=== PATIENT | female | born 2000 | race Two or more races ===

== ENCOUNTER 2025-03-28 16:58 | Emergency (ER) | payer MEDICAID, SELFPAY ==
[2025-03-28 17:09] VITALS: BP 139/86; PULSE 84; RESP 16; TEMP 36.8; O2SAT 98
--- NOTE | 2025-03-28 17:15 | EDRME_ITS ---
Rapid Medical Screening Exam E Arrival date/time: 03/28/25 16:58 This is a 24-year-old female that comes into the emergency room with complaints of dysuria, oliguria urinary frequency urgency. Patient states symptoms started yesterday. Patient does not think she is . Patient complains of nausea and fever. Patient denies past medical history. I have greeted and performed a focused initial assessment of this patient. Initial appropriate labs ordered at this time. A comprehensive ED assessment a nd evaluation of the patient and analysis of all test and completion of medical decision making process will be conducted by additional ED provider. Chief Complaint: General Adult/Misc Complain Time Seen by Provider: 03/28/25 17:01 Vital signs: Vital Signs Temperature 98.3 F 03/28/25 17:09 Pulse Rate 84 03/28/25 17:09 Respiratory Rate 16 03/28/25 17:09 Blood Pressure 139/86 H 03/28/25 17:09 Pulse Oximetry (%) 98 03/28/25 17:09 Oxygen Delivery Method Room Air 03/28/25 17:09 Exam: Patient alert and oriented, breathing even and unlabored, GCS of 15 Clinical Impression: Differential UTI, , dysuria
[2025-03-28 17:25] LABS: Collection Type, Urine Voided
[2025-03-28 17:35] LABS: Amorphous Crystals,Urine Present (Absent); Bilirubin,Urine Negative (Negative); Blood,Urine 2+ (Negative); Color,Urine Yellow (Lt Yel-Yel); Glucose, Urine Negative (Negative); HCG Qualitative,Urine Negative; Ketones,Urine Negative (Negative); Leukocyte Esterase,Urine Positive (Negative); Nitrite,Urine Negative (Negative); PH,Urine 7.0 (5.0-7.0); Protein,Urine 1+ (Neg - Trace); RBC,Urine 179 /hpf (0-3); Specific Gravity,Urine 1.026 (1.001-1.035); Squamous Epithelial Cell,Urine 9 /hpf (0-5); Transitional Epi Cells,Urine 5 /hpf (0-5); Urobilinogen,Urine Negative mg/dL (0.0-1.0); WBC,Urine 240 /hpf (0-5)
[2025-03-28 17:36] LABS: Clarity,Urine Turbid (Clear/Hazy); Culture Indicated,Urine Yes
[2025-03-28 20:04] VITALS: BP 112/71; PULSE 67; RESP 16; TEMP 37.1; O2SAT 98
--- NOTE | 2025-03-28 20:20 | EDNOTE_ITS ---
ED General RME/HPI General Chief complaint: General Adult/Misc Complain Stated complaint: PAIN W/ URINATION X 1 DAY Time Seen by Provider: 03/28/25 17:01 Arrival date/time: 03/28/25 16:58 CC: Dysuria HPI ongoing for 1 day no prior history of similar events. Is sexually active denies any as she has an implant. Patient denies fever chills nausea vomiting back pain or abdominal pain. RME / HPI RME / HPI narrative: 03/28/25 16:58 This is a 24-year-old female that comes into the emergency room with complaints of dysuria, oliguria urinary frequency urgency. Patient states symptoms started yesterday. Patient does not think she is . Patient complains of nausea and fever. Patient denies past medical history. I have greeted and performed a focused initial assessment of this patient. Initial appropriate labs ordered at this time. A comprehensive ED assessment and evaluation of the patient and analysis of all test and completion of medical decision making process will be conducted by additional ED provider. Exam: Patient alert and oriented, breathing even and unlabored, GCS of 15 Impression: Differential UTI, , dysuria Related Data Previous Rx's ?Medication ?Instructions ?Recorded cephalexin 500 mg capsule 500 mg PO BID #14 caps 03/28 Allergies Allergy/AdvReac Type Severity Reaction Status Date / Time No Known Allergies Allergy Verified 03/28/25 17:03 Review of Systems Review of Systems Narrative Review of Systems: GEN: No fever, no chills, no weight loss EYES: No discharge, no visual changes, no pain HEENT: No ear pain, no congestion, no sore throat PULM: No shortness of breath, no cough, no congestion CV: No chest pain, no dyspnea on exertion, no palpitations GI: No nausea, no vomiting, no diarrhea, no pain, no constipation : No frequency, no urgency, no dysuria MUSC/SKEL: No joint pain, no back pain SKIN: No rash PSYCH: No hallucinations, no depression HEME/LYMPH: No easy bleeding or bruising tendencies NEURO: No weakness, no headache Past Medical History Social History SMOKING STATUS: Never smoker ED Exam Narrative Physical exam: [General: Not in any acute distress Head normocephalic HEENT: Within acceptable limits Neck is supple nontender Chest equal chest rise nontender to palpation Respiratory: Clear to auscultation no wheezes crackles or rubs CV: Rate rhythm is regular no murmurs rubs or clicks Abdomen is distended secondary to body habitus soft nontender no masses positive bowel sounds all 4 quadrants Back: No CVA tenderness no spinous process tenderness from cervical spine thoracic and lumbar spine Skin: Intact no petechiae rash induration ulceration or crepitus Extremities: Moving all extremity against resistance cap refill less than 2 seconds neurosensory intact Neuro: Awake alert oriented x3 Glascow coma 15 no focal deficits] Course Quality Measures none Orders Category Date Time Status HCG Qualitative,Urine Stat Lab 03/28/25 17:19 Completed Urinalysis, C/S if Indicated Stat Lab 03/28/25 17:19 Completed Urine Culture Stat Lab 03/28/25 17:19 Received Vital Signs Vital signs: Vital Signs Temperature 98.3 F 03/28/25 17:09 Pulse Rate 84 03/28/25 17:09 Respiratory Rate 16 03/28/25 17:09 Blood Pressure 139/86 H 03/28/25 17:09 Pulse Oximetry (%) 98 03/28/25 17:09 Oxygen Delivery Method Room Air 03/28/25 17:09 Discharge Plan Plan Patient Disposition: HOME (Self Care) Patient condition on transfer: Stable Prescriptions/Referrals Prescriptions/Med Rec: New cephalexin 500 mg capsule 500 mg PO BID Qty: 14 0RF Referrals: Severiano Sánchez MD [Primary Care Provider, Family Practice] - In 1 week Problem List Clinical Impression: UTI (urinary tract infection) Patient/Caregiver Discharge Instructions Education Materials: ED CYSTITIS Female Adult Print Language: Maltese Stand Alone Forms: [employer] Award Info., Patient Portal Info Letter, Work/School Release 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 Supervising Physician 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 Supervising Physician: Bill Dominguez ENP MDM Clinical Information Provided by: patient Medical Records reviewed [facility] Meds/Rx considered, not ordered None Labs/Rad/Tests considered, not ordered None Chronic Illness/Social Conditions which may negatively complicate care or outcome(s)-explain: None or not applicable EKG EKG not done Labs Labs: interpreted by oh Lab(s) Interpretation(s): Urine shows turbid 1+ protein 2+ blood 179 RBCs 240 WBCs 9 squamous epithelial no bacteria positive leukocyte esterase negative nitrites. Imaging Imaging interpretation: none Medication Administration(s) none Diagnosis Differential Diagnosis ED Complaint MDM: UTI pyelonephritis hydronephrosis
== END 2025-03-28 20:35 | disposition home or self-care (01) ==
PROVIDERS: Nurse Practitioner Family; Emergency Provider Emergency Medicine; PCP Family Medicine
DX: N30.90 Cystitis, unspecified without hematuria (principal)
CPT/HCPCS: 81001; 81025; 87077; 87086; 87186; 99281